=== PATIENT | male | born 1985 | race Hispanic/Latino ===

== ENCOUNTER 2018-09-28 16:33 | Emergency (ER) | payer SELFPAY ==
[2018-09-28] MEDS ORDERED: HALDOL IM STA (16:51)
[2018-09-28] MEDS ORDERED: ATIVAN IV ONE (16:58)
[2018-09-28] MEDS ORDERED: D5/0.45NS 1,000 ML IV SCH (17:00)
--- NOTE | 2018-09-28 17:18 | Emergency Department Report ---
ED General Adult HPI - General Chief complaint: Psych Stated complaint: DETOX Time Seen by Provider: 09/28/18 16:42 Source: patient, EMS (ems notes not available at time of chart dictation), RN notes reviewed Mode of arrival: [place] Limitations: Other (patient is a poor historian) - History of Present Illness Initial comments: This is a 33-year-old gentleman who is not known to this provider previously, currently in outpatient narcotic detox therapy, who was sent to the emergency room for evaluation. Patient complains of malaise, fatigue, twitching, shaking, nausea, vomiting, difficulty tolerating liquid feeds. He reports vomiting 1 in the past 24 hours. He is blinking his eyes spontaneously, quite rapidly, and is not sure why he is doing this. He is also having involuntary jerks and twitches in his lower extremities and upper extremities, however he does stop when he is concentrating on a particularly difficult question, and he is not sure how long this is going on for, and he reports that it is painless. He denies headache, neck pain, chest pain, abdominal pain, shortness of breath, homicidality, suicidality. His current medications include gabapentin, clonidine, subutex, Zofran, and he is not sure how long his been taking any of these medicines. He is not currently homicidal or suicidal. As far as he knows, this hasn't happened to him in the past. He denies hallucinations, and he reports his last narcotic ingestion was 7-8 days ago. -: Gradual Consistency: constant Improves with: none Worsens with: none Associated Symptoms: loss of appetite, malaise, nausea/vomiting, weakness. denies: confusion, chest pain, cough, diaphoresis, fever/chills, headaches, rash, seizure, shortness of breath, syncope - Related Data Previous Rx's Medication Instructions Recorded Last Taken Type Ondansetron [Zofran Odt] 4 mg PO Q8HR PRN #20 tab.rapdis 09/28/18 Unknown Rx Promethazine [Phenergan SUPPOS] 50 mg MD Q6H PRN #20 supp.rect 09/28/18 Unknown Rx Allergies Allergy/AdvReac Type Severity Reaction Status Date / Time SSRI medications Allergy Unknown Uncoded 09/28/18 16:49 ED Review of Systems ROS: Stated complaint: DETOX Other details as noted in HPI Constitutional: malaise Eyes: denies: eye discharge ENT: denies: epistaxis Respiratory: denies: cough Cardiovascular: denies: chest pain Gastrointestinal: nausea, vomiting. denies: abdominal pain Neurological: weakness Psychiatric: anxiety. denies: homicidal thoughts, suicidal thoughts ED Past Medical Hx - Social History Smoking Status: Never Smoker - Medications Home Medications: Home Medications Medication Instructions Recorded Confirmed Last Taken Type Ondansetron [Zofran Odt] 4 mg PO Q8HR PRN #20 tab.rapdis 09/28/18 Unknown Rx Promethazine [Phenergan SUPPOS] 50 mg MD Q6H PRN #20 supp.rect 09/28/18 Unknown Rx ED Physical Exam - General Limitations: Physical Limitation General appearance: alert, anxious - Head Head exam: Present: atraumatic, normocephalic - Eye Eye exam: Present: normal appearance, PERRL, EOMI, other (patient having rapid blinking during his history and physical. However, the blinking does stop when the patient is concentrating on responses). Absent: nystagmus - ENT ENT exam: Present: normal exam, normal orophraynx, mucous membranes moist, no rmal external ear exam - Neck Neck exam: Present: normal inspection, full ROM - Respiratory Respiratory exam: Present: normal lung sounds bilaterally. Absent: respiratory distress - Cardiovascular Cardiovascular Exam: Present: regular rate, normal rhythm, normal heart sounds. Absent: bradycardia, tachycardia, irregular rhythm, systolic murmur, diastolic murmur, rubs, gallop - GI/Abdominal GI/Abdominal exam: Present: soft. Absent: distended, tenderness, guarding, rebound, rigid, pulsatile mass - Rectal Rectal exam: Present: deferred - Extremities Exam Extremities exam: Present: normal inspection, full ROM, other (patient noted to be having nonspecific myoclonic jerks and twitches in the upper, lower extremities). Absent: pedal edema, joint swelling, calf tenderness - Back Exam Back exam: Present: normal inspection, full ROM. Absent: tenderness, CVA tenderness (R), CVA tenderness (L), muscle spasm, paraspinal tenderness, vertebral tenderness - Neurological Exam Neurological exam: Present: alert, oriented X3, CN II-XII intact, other (Extraocular movements intact. Tongue midline. No facial droop. Facial sensation intact to light touch in the V1, V2, V3 distribution bilaterally. 5 and 5 strength in 4 extremities.. Sensation is intact to light touch in 4 extremities.). Absent: motor sensory deficit - Psychiatric Psychiatric exam: Absent: homicidal ideation, suicidal ideation - Skin Skin exam: Present: warm, dry, intact, normal color. Absent: rash ED Course Vital Signs 09/28/18 12 18:19 18:22 Temperature 98.5 F Pulse Rate 77 Respiratory 18 18 Rate Blood Pressure 121/68 [Left] O2 Sat by Pulse 98 98 Oximetry - Reevaluation(s) Reevaluation #1: 09/28/18 17:16 Differential diagnosis, including not limited to: Withdrawal syndrome, medication side effect, electrolyte derangement, thyroid derangement, structural intracranial lesion, conversion disorder Assessment and plan: 33-year-old gentleman sent for nausea, malaise, weakness, with nonspecific generalized myoclonic jerks, blinking. The patient is alert and oriented 3, has 5 out of 5 strength in 4 extremities, and is able to move 4 extremities spontaneously and in response to command/instruction. He is not homicidal or suicidal at this time, and obviously does not require 1013 at this time. We will check screening laboratory studies, EKG, give IV fluids, trial dose of Ativan, obtain noncontrast CT scan of the brain, noncontrast CT scan of the abdomen and pelvis, and reassess. Reevaluation #2: 09/28/18 18:44 Patient appears to be somewhat anxious, but has not had any episodes of loss of consciousness or documented hemodynamic instability. There is no episode of vomiting noted. He is documented to up and walking with a steady gait. His objective testing is unremarkable. He will be discharged with as needed nausea medication, and instructions to follow-up with an outpatient primary care doctor. ED Medical Decision Making - Lab Data Result diagrams: 09/28/18 17:31 09/28/18 17:31 - EKG Data -: EKG Interpreted by Me EKG shows normal: sinus rhythm Rate: normal - EKG Data When compared to previous EKG there are: previous EKG unavailable 09/28/18 17:18 Sinus, 64 bpm, motion artifact, normal axis, QTC prolonged, borderline high left ventricular voltage, not consistent with ST elevation myocardial infarction, there is no prior for comparison. - Radiology Data Radiology results: pending Critical care attestation.: If time is entered above; I have spent that time in minutes in the direct care of this critically ill patient, excluding procedure time. ED Disposition Clinical Impression: History of nausea, History of narcotic use Disposition: TO HOME OR SELFCARE Is pt being admited?: No Does the pt Need Aspirin: No Condition: Good Additional Instructions: Take medications as needed/directed. Discontinue consumption of opioids, narcotics. Follow up with any of the listed neurology physicians within the next 2-3 weeks, or follow-up with a pain specialist within the next 2-3 weeks. Return to the emergency room right away with lethargy, irritability, projectile vomiting, change in mental status, confusion, inability to tolerate liquid feeds. Start with Zofran as needed for nausea, and the patient has persistent vomiting, admits to Phenergan suppositories. Advance diet as tolerated, start with gentle liquids, and initiate solids as patient is able to tolerate. Referrals: TOM GALLO MD [Staff Physician] - 3-5 Days PASCUAL VILLA MD [Staff Physician] - 3-5 Days AC STILL MD [Referring] - 3-5 Days ES COURTNEY MD [Staff Physician] - 3-5 Days [facility] [Provider Group] - 3-5 Days
[2018-09-28 17:42] LABS: Hematocrit 39.8 % (35.5-45.6); Hemoglobin 13.3 gm/dl (11.8-15.2); Mean Corpuscular HGB Conc 33 % (32-34); Mean Corpuscular Hemoglobin 29 pg (28-32); Mean Corpuscular Volume 86 fl (84-94); Platelet Count 406 K/mm3 (140-440); Red Blood Count 4.65 M/mm3 (3.65-5.03)
[2018-09-28 17:51] LABS: INR 1.1 (0.87-1.13); Partial Thromboplastin Time 29.7 Sec. (24.2-36.6)
[2018-09-28 18:03] LABS: Alanine Aminotransferase 102 units/L (7-56); Albumin 4.7 g/dL (3.9-5); BUN/Creatinine Ratio 21; Blood Urea Nitrogen 21 mg/dL (9-20); Calcium 9.3 mg/dL (8.4-10.2); Hemolysis Index 21
[2018-09-28] MEDS ORDERED: ATIVAN IM STA (18:11)
--- NOTE | 2018-09-28 18:21 | Cat Scan Report ---
FINAL REPORT EXAM: CT ABDOMEN PELVIS WO CON HISTORY: weakness n/v TECHNIQUE: CT abdomen and pelvis without contrast PRIORS: None. FINDINGS: No acute abnormality identified in the lung bases. No focal abnormality identified within the liver parenchyma. The spleen demonstrates normal size and attenuation. No pancreatic abnormalities seen. Kidneys demonstrate no evidence of hydronephrosis or nephrolithiasis. No ureteral calculus identified . The adrenal glands are unremarkable. Abdominal aorta is normal in caliber. No pathologically enlarged lymph nodes are identified. No signs of free fluid or free air No evidence of small bowel dilatation. The appendix is identified and is normal in size no adjacent inflammatory change seen. Urinary bladde r is unremarkable. IMPRESSION: Negative. No acute abnormalities seen
--- NOTE | 2018-09-28 18:21 | Cat Scan Report ---
FINAL REPORT PROCEDURE: CT head without contrast. TECHNIQUE: Computerized tomography of the head was performed without contrast material. HISTORY: Twitching, weakness. COMPARISON: No prior studies are available for comparison. FINDINGS: There is motion artifact on a few of the images. The ventricles are normal in size. The macdonald matter a nd white matter appear normal. There are no mass lesions. There is no intracranial hemorrhage. The ca lvarium appears intact. The mastoid air cells and paranasal sinuses are clear as far as visualized. IMPRESSION: Normal study.
[2018-09-28 18:22] VITALS: BP 121/68
== END 2018-09-28 19:46 | disposition home or self-care (01) ==
LOC: ED 16:33
DX: R11.2 Nausea with vomiting, unspecified (principal); F11.90 Opioid use, unspecified, uncomplicated; M79.10 Myalgia, unspecified site; R53.83 Other fatigue; F41.9 Anxiety disorder, unspecified; Z88.1 Allergy status to other antibiotic agents; Z88.8 Allergy status to other drugs, medicaments and biological substances
CPT/HCPCS: 36415; 70450; 74176; 80053; 82550; 83735; 84439; 84443; 85027; 85610; 85730; 93005; 93010; 96372; 99284; J2060

== ENCOUNTER 2018-09-29 23:43 | Emergency (ER) | payer SELFPAY ==
[2018-09-30 00:33] VITALS: BP 131/73
[2018-09-30] MEDS ORDERED: ZOFRAN IV ONE (00:34)
[2018-09-30] MEDS ORDERED: PEPCID IV ONE (00:34)
[2018-09-30] MEDS ORDERED: D5NS 1,000 ML IV SCH (01:00)
[2018-09-30 01:49] LABS: Basophils # (Auto) 0.1 K/mm3 (0.0-0.1); Basophils % (Auto) 0.5 % (0.0-1.8); Eosinophils # (Auto) 0.2 K/mm3 (0.0-0.4); Eosinophils % (Auto) 1.6 % (0.0-4.3); Hematocrit 40.7 % (35.5-45.6); Hemoglobin 13.6 gm/dl (11.8-15.2); Lymphocytes % (Auto) 22.5 % (13.4-35.0); Mean Corpuscular HGB Conc 33 % (32-34); Mean Corpuscular Hemoglobin 29 pg (28-32); Mean Corpuscular Volume 87 fl (84-94); Monocytes # (Auto) 1.2 K/mm3 (0.0-0.8); Monocytes % (Auto) 9.2 % (0.0-7.3); Platelet Count 376 K/mm3 (140-440); Red Blood Count 4.66 M/mm3 (3.65-5.03); Red Cell Distribution Width 14.2 % (13.2-15.2)
[2018-09-30 01:54] LABS: BUN/Creatinine Ratio 22; Blood Urea Nitrogen 22 mg/dL (9-20); Calcium 9.4 mg/dL (8.4-10.2); Hemolysis Index 13
[2018-09-30 03:24] LABS: Amphetamine Screen,Urine PRESUMPTIVE NEGATIVE; Benzodiazepines Screen,Urine PRESUMPTIVE NEGATIVE; Bilirubin,Urine NEG (Negative); Blood,Urine NEG (Negative); Cannabinoid Screen,Urine PRESUMPTIVE NEGATIVE; Cocaine Screen,Urine PRESUMPTIVE NEGATIVE; Color,Urine Yellow (Yellow); Hyaline Casts,Urine 11 /LPF; Methadone Screen,Urine PRESUMPTIVE NEGATIVE; Mucus,Urine 3+ /HPF; Opiate Screen,Urine PRESUMPTIVE NEGATIVE; RBC,Urine < 1.0 /HPF (0.0-6.0); Urobilinogen,Urine < 2.0 mg/dL (<2.0)
--- NOTE | 2018-09-30 04:16 | Emergency Department Report ---
ED General Adult HPI - General Chief complaint: Seizure Stated complaint: DETOX Time Seen by Provider: 09/30/18 00:25 Source: patient, EMS Mode of arrival: Wheelchair Limitations: Other - History of Present Illness Initial comments: Patient is a 33-year-old male who is here from [facility] because of a possible seizure earlier today. Patient states he hasn't been eating and drinking well because of nausea. Patient had possible seizure earlier he was given Ativan. Patient is detoxing from heroin abuse. Details also mentioned that he wasn't responding to internal stimuli. Patient denies any homicidal suicidal ideation. Patient was seen yesterday for dehydration and given fluids CT of the head and laboratory studies were done which were all unremarkable. - Related Data Previous Rx's Medication Instructions Recorded Last Taken Type Ondansetron [Zofran Odt] 4 mg PO Q8HR PRN #20 tab.rapdis 09/28/18 Unknown Rx Promethazine [Phenergan SUPPOS] 50 mg AK Q6H PRN #20 supp.rect 09/28/18 Unknown Rx Allergies Allergy/AdvReac Type Severity Reaction Status Date / Time buprenorphine [From Suboxone] Allergy Unknown Verified 09/30/18 00:23 naloxone [From Suboxone] Allergy Unknown Verified 09/30/18 00:23 SSRI medications Allergy Unknown Uncoded 09/28/18 16:49 ED Review of Systems ROS: Stated complaint: DETOX Other details as noted in HPI Comment: All other systems reviewed and negative ED Past Medical Hx - Past Medical History Previous Medical History?: Yes Additional medical history: opiate abuse - Surgical History Past Surgical History?: No - Social History Smoking Status: Never Smoker Substance Use Type: None - Medications Home Medications: Home Medications Medication Instructions Recorded Confirmed Last Taken Type Ondansetron [Zofran Odt] 4 mg PO Q8HR PRN #20 tab.rapdis 09/28/18 09/30/18 Unknown Rx Promethazine [Phenergan SUPPOS] 50 mg AK Q6H PRN #20 supp.rect 09/28/18 09/30/18 Unknown Rx ED Physical Exam - General Limitations: Other General appearance: alert, in no apparent distress - Head Head exam: Present: atraumatic, normocephalic - Eye Eye exam: Present: normal appearance - ENT ENT exam: Present: mucous membranes moist - Neck Neck exam: Present: normal inspection - Respiratory Respiratory exam: Present: normal lung sounds bilaterally. Absent: respiratory distress, wheezes, rales, rhonchi - Cardiovascular Cardiovascular Exam: Present: regular rate, normal rhythm. Absent: systolic murmur, diastolic murmur, rubs, gallop - GI/Abdominal GI/Abdominal exam: Present: soft, normal bowel sounds - Rectal Rectal exam: Present: deferred - Extremities Exam Extremities exam: Present: normal inspection - Back Exam Back exam: Present: normal inspection - Neurological Exam Neurological exam: Present: alert, oriented X3 - Psychiatric Psychiatric exam: Present: normal affect, normal mood - Skin Skin exam: Present: warm, dry, intact, normal color. Absent: rash ED Course Vital Signs 09/30/18 00:33 Temperature 98.1 F Pulse Rate 90 Respiratory 18 Rate Blood Pressure 131/73 [Left] O2 Sat by Pulse 98 Oximetry ED Medical Decision Making - Lab Data Result diagrams: 09/30/18 01:23 09/30/18 01:23 Lab Results 09/30/18 09/30/18 09/30/18 Range/Units 01:23 01:23 01:23 WBC 13.4 H (4.5-11.0) K/mm3 RBC 4.66 (3.65-5.03) M/mm3 Hgb 13.6 (11.8-15.2) gm/dl Hct 40.7 (35.5-45.6) % MCV 87 (84-94) fl MCH 29 (28-32) pg MCHC 33 (32-34) % RDW 14.2 (13.2-15.2) % Plt Count 376 (140-440) K/mm3 Lymph % (Auto) 22.5 (13.4-35.0) % [place] % (Auto) 9.2 H (0.0-7.3) % Eos % (Auto) 1.6 (0.0-4.3) % Baso % (Auto) 0.5 (0.0-1.8) % Lymph # 3.0 (1.2-5.4) K/mm3 [place] # 1.2 H (0.0-0.8) K/mm3 Eos # 0.2 (0.0-0.4) K/mm3 Baso # 0.1 (0.0-0.1) K/mm3 Seg Neutrophils % 66.2 (40.0-70.0) % Seg Neutrophils # 8.9 H (1.8-7.7) K/mm3 Sodium 141 (137-145) mmol/L Potassium 3.5 L (3.6-5.0) mmol/L Chloride 104.6 (98-107) mmol/L Carbon Dioxide 19 L (22-30) mmol/L Anion Gap 21 mmol/L BUN 22 H (9-20) mg/dL Creatinine 1.0 (0.8-1.5) mg/dL Estimated GFR > 60 ml/min BUN/Creatinine Ratio 22 % Glucose 106 H (75-100) mg/dL Calcium 9.4 (8.4-10.2) mg/dL Urine Color (Yellow) Urine Turbidity (Clear) Urine pH (5.0-7.0) Ur Specific Martin (1.003-1.030) Urine Protein (Negative) mg/dL Urine Glucose (UA) (Negative) mg/dL Urine Ketones (Negative) mg/dL Urine Blood (Negative) Urine Nitrite (Negative) Urine Bilirubin (Negative) Urine Urobilinogen (<2.0) mg/dL Ur Leukocyte Esterase (Negative) Urine WBC (Auto) (0.0-6.0) /HPF Urine RBC (Auto) (0.0-6.0) /HPF Hyaline Casts /LPF Urine Mucus /HPF Salicylates < 0.3 L (2.8-20.0) mg/dL Urine Opiates Screen Urine Methadone Screen Acetaminophen (10.0-30.0) ug/mL Ur Barbiturates Screen Ur Phencyclidine Scrn Ur Amphetamines Screen U Benzodiazepines Scrn Urine Cocaine Screen U Marijuana (THC) Screen Drugs of Abuse Note Plasma/Serum Alcohol (0-0.07) % 09/30/18 09/30/18 09/30/18 Range/Units 01:23 01:23 03:00 WBC (4.5-11.0) K/mm3 RBC (3.65-5.03) M/mm3 Hgb (11.8-15.2) gm/dl Hct (35.5-45.6) % MCV (84-94) fl MCH (28-32) pg MCHC (32-34) % RDW (13.2-15.2) % Plt Count (140-440) K/mm3 Lymph % (Auto) (13.4-35.0) % [place] % (Auto) (0.0-7.3) % Eos % (Auto) (0.0-4.3) % Baso % (Auto) (0.0-1.8) % Lymph # (1.2-5.4) K/mm3 [place] # (0.0-0.8) K/mm3 Eos # (0.0-0.4) K/mm3 Baso # (0.0-0.1) K/mm3 Seg Neutrophils % (40.0-70.0) % Seg Neutrophils # (1.8-7.7) K/mm3 Sodium (137-145) mmol/L Potassium (3.6-5.0) mmol/L Chloride (98-107) mmol/L Carbon Dioxide (22-30) mmol/L Anion Gap mmol/L BUN (9-20) mg/dL Creatinine (0.8-1.5) mg/dL Estimated GFR ml/min BUN/Creatinine Ratio % Glucose (75-100) mg/dL Calcium (8.4-10.2) mg/dL Urine Color Yellow (Yellow) Urine Turbidity Clear (Clear) Urine pH 5.0 (5.0-7.0) Ur Specific Martin 1.027 (1.003-1.030) Urine Protein 30 mg/dl (Negative) mg/dL Urine Glucose (UA) 50 (Negative) mg/dL Urine Ketones 20 (Negative) mg/dL Urine Blood Neg (Negative) Urine Nitrite Neg (Negative) Urine Bilirubin Neg (Negative) Urine Urobilinogen < 2.0 (<2.0) mg/dL Ur Leukocyte Esterase Neg (Negative) Urine WBC (Auto) 2.0 (0.0-6.0) /HPF Urine RBC (Auto) < 1.0 (0.0-6.0) /HPF Hyaline Casts 11 /LPF Urine Mucus 3+ /HPF Salicylates (2.8-20.0) mg/dL Urine Opiates Screen Urine Methadone Screen Acetaminophen < 5.0 L (10.0-30.0) ug/mL Ur Barbiturates Screen Ur Phencyclidine Scrn Ur Amphetamines Screen U Benzodiazepines Scrn Urine Cocaine Screen U Marijuana (THC) Screen Drugs of Abuse Note Plasma/Serum Alcohol < 0.01 (0-0.07) % 09/30/18 Range/Units 03:00 WBC (4.5-11.0) K/mm3 RBC (3.65-5.03) M/mm3 Hgb (11.8-15.2) gm/dl Hct (35.5-45.6) % MCV (84-94) fl MCH (28-32) pg MCHC (32-34) % RDW (13.2-15.2) % Plt Count (140-440) K/mm3 Lymph % (Auto) (13.4-35.0) % [place] % (Auto) (0.0-7.3) % Eos % (Auto) (0.0-4.3) % Baso % (Auto) (0.0-1.8) % Lymph # (1.2-5.4) K/mm3 [place] # (0.0-0.8) K/mm3 Eos # (0.0-0.4) K/mm3 Baso # (0.0-0.1) K/mm3 Seg Neutrophils % (40.0-70.0) % Seg Neutrophils # (1.8-7.7) K/mm3 Sodium (137-145) mmol/L Potassium (3.6-5.0) mmol/L Chloride (98-107) mmol/L Carbon Dioxide (22-30) mmol/L Anion Gap mmol/L BUN (9-20) mg/dL Creatinine (0.8-1.5) mg/dL Estimated GFR ml/min BUN/Creatinine Ratio % Glucose (75-100) mg/dL Calcium (8.4-10.2) mg/dL Urine Color (Yellow) Urine Turbidity (Clear) Urine pH (5.0-7.0) Ur Specific Martin (1.003-1.030) Urine Protein (Negative) mg/dL Urine Glucose (UA) (Negative) mg/dL Urine Ketones (Negative) mg/dL Urine Blood (Negative) Urine Nitrite (Negative) Urine Bilirubin (Negative) Urine Urobilinogen (<2.0) mg/dL Ur Leukocyte Esterase (Negative) Urine WBC (Auto) (0.0-6.0) /HPF Urine RBC (Auto) (0.0-6.0) /HPF Hyaline Casts /LPF Urine Mucus /HPF Salicylates (2.8-20.0) mg/dL Urine Opiates Screen Presumptive negative Urine Methadone Screen Presumptive negative Acetaminophen (10.0-30.0) ug/mL Ur Barbiturates Screen Presumptive negative Ur Phencyclidine Scrn Presumptive negative Ur Amphetamines Screen Presumptive negative U Benzodiazepines Scrn Presumptive negative Urine Cocaine Screen Presumptive negative U Marijuana (THC) Screen Presumptive negative Drugs of Abuse Note Disclamer Plasma/Serum Alcohol (0-0.07) % - Medical Decision Making Patient has been medically cleared for continued psychiatric treatment. Patient is not homicidal suicidal was not BR2 01/12/2013 at this time. Patient's had no further seizure activity. If patient feels uneasy or shaking he can continue with Ativan. Critical care attestation.: If time is entered above; I have spent that time in minutes in the direct care of this critically ill patient, excluding procedure time. ED Disposition Clinical Impression: History of narcotic use, Withdrawal from opioids Disposition: DC-01 TO HOME OR SELFCARE Is pt being admited?: No Does the pt Need Aspirin: No Condition: Stable Referrals: PRIMARY CARE, [Primary Care Provider] - 3-5 Days Time of Disposition: 04:16
== END 2018-09-30 04:56 | disposition home or self-care (01) ==
LOC: ED 23:43
DX: F15.93 Other stimulant use, unspecified with withdrawal (principal)
CPT/HCPCS: 36415; 80048; 80307; 81001; 85025; 96374; 96375; 99284; G0480; J2405; J7042; 80320